=== PATIENT | female | born 1985 | race Caucasian/White ===

== ENCOUNTER 2017-12-16 09:50 | Emergency (ER) | payer MEDICAID ==
[2017-12-16 10:06] VITALS: TEMP 98.6
--- NOTE | 2017-12-16 11:45 | EDPHY ---
H & P Time Seen by Provider: 12/16/17 09:55 HPI/ROS: CHIEF COMPLAINT: Abdominal pain HISTORY OF PRESENT ILLNESS: Patient to [facility] for CT scan of the abdomen. She did mention to networking technology instructor that she had chronic constipation and some blood in her stool and he requested that she get an abdomen and pelvis CT scan. Patient checked into the emergency department for further evaluation and imaging as indicated. She tells me that she has had right upper abdominal pain since approximately new year's Kiara. She was seen at that time by [facility] had a normal right upper quadrant ultrasound. She has had multiple follow ups with her primary care physician with elevated LFTs noted which prompted this CT scan. Also describes lifelong history of constipation with occasional hard dark stools and bright red blood per rectum at times. Additionally she has history of irritable bowel syndrome since the age of 10 as well as chronic Lyme disease over the last 15 years. She was on multiple medications in tell end of October and currently she is only on levothyroxine. The right upper quadrant abdominal pain she describes as a dull ache with occasional sharp components with movement. No radiation. No nausea or vomiting. She does also have many dietary restrictions. REVIEW OF SYSTEMS: Constitutional: No fever, no chills. Eyes: No discharge. ENT: No sore throat. Cardiovascular: No chest pain, no palpitations. Respiratory: No cough, no shortness of breath. Gastrointestinal: No diarrhea, no vomiting Genitourinary: No dysuria. No vaginal discharge or bleeding Musculoskeletal: No back pain. Skin: No rashes. Neurological: No headache. General Appearance: Alert, no distress. Eyes: Pupils equal and round no pallor or injection. ENT, Mouth: Mucous membranes moist. Respiratory: There are no retractions, lungs are clear to auscultation. Cardiovascular: Regular rate and rhythm. Gastrointestinal: Abdomen is soft and nontender, no masses, bowel sounds normal. Neurological: Alert, normal tone, normal coordination. Skin: Warm and dry, no rashes. Musculoskeletal: Neck is supple nontender. Extremities are symmetrical, full range of motion, no edema. Psychiatric: Patient is oriented X 3, there is no agitation. Medical/surgical history: Lyme disease, IBS, thyroid disorder, status post appendectomy. Social history: Nonsmoker, no EtOH. Smoking Status: Never smoked Constitutional: Initial Vital Signs Temperature (C) 37 C 12/16/17 09:58 Heart Rate 62 12/16/17 09:58 Respiratory Rate 16 12/16/17 09:58 Blood Pressure 112/71 12/16/17 09:58 O2 Sat (%) 97 12/16/17 09:58 O2 Delivery Mode Room Air Allergies/Adverse Reactions: No Known Allergies Allergy (Unverified 12/16/17 10:07) Home Medications: Medication Instructions Recorded Levothyroxine 12/16/17 Medical Decision Making - Diagnostics Imaging Results: Imaging Impressions Abdomen CT 12/16/17 10:06 Impression: 1. Constipation. 2. Otherwise, no anatomic explanation for elevated LFTs and abdominal pain. ED Course/Re-evaluation: I reviewed the CT scan results with the patient. No acute findings. 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 Suspect this is an incidental finding as not consistent with her symptoms. Reviewed previous labs. Differential Diagnosis: Differential diagnosis includes but isn't limited to biliary colic, pancreatitis , bowel obstruction, hepatitis, fatty liver. After evaluation unclear cause of patient's right upper quadrant abdominal pain but she is under the care of her primary care physician who is working through an extensive evaluation. Discussed that HIDA scan may be next step. May also benefit from seeing a space operations. No evidence of an emergent medical condition today. Feel patient is stable for continued workup as outpatient. Understands return precautions. Stable for discharge. Departure - Departure Disposition: Home, Routine, Self-Care Clinical Impression: Elevated alkaline phosphatase level Condition: Good Instructions: Abdominal Pain (ED) Additional Instructions: Follow-up with Dr. Lee as discussed. Talked to him about a HIDA scan if indicated. Referrals: Demar Lee [Primary Care Provider] - As per Instructions
[2017-12-16 11:58] VITALS: BP 100/70; PULSE 64; RESP 18; O2SAT 98
== END 2017-12-16 11:57 | disposition home or self-care (01) ==
LOC: CED 09:50
DX: R74.8 Abnormal levels of other serum enzymes (principal)
CPT/HCPCS: 74177-PO

== ENCOUNTER → 2018-11-16 | Outpatient (CLI) | payer MEDICAID | LOC: FIMAGING 12:31 | PROVIDERS: ATTEND Family Medicine | DX: R10.11 Right upper quadrant pain (principal); R74.8 Abnormal levels of other serum enzymes | CPT/HCPCS: 78227; A9537 ==